=== PATIENT | male | born 1960 | race Native Hawaiian/Other Pacific Islander ===

== ENCOUNTER 2018-09-09 01:02 | Emergency (ER) | payer BC ==
[~2018-09-09] VITALS: Ht 180.3 cm; Wt 89.4 kg
[2018-09-09] MEDS ORDERED: TRIA37.541 PO (01:16)
[2018-09-09] MEDS ORDERED: AMLODIPINE BESYLATE PO (01:16)
[2018-09-09 01:37] LABS: PLATELET COUNT 195 K/uL (142-355)
[2018-09-09 01:44] LABS: POTASSIUM 3.6 mmol/L (3.6-5.2); SODIUM 140 mmol/L (136-145)
[2018-09-09 02:27] VITALS: BP 117/52; TEMP 98
== END 2018-09-09 02:31 | disposition home or self-care (01) ==
LOC: ED 01:02
DX: G45.9 Transient cerebral ischemic attack, unspecified (principal)
CPT/HCPCS: 36415; 80053; 82550; 82553; 84484; 85027; 99283